=== PATIENT | male | born 1945 | race Caucasian/White ===

== ENCOUNTER 2018-08-31 15:39 | Emergency (ER) | payer MEDICARE, BC, SELFPAY ==
[2018-08-31] VITALS (10 sets, daily range): BP systolic 92–119; BP diastolic 55–79; PULSE 74–97; RESP 12–25; TEMP 36.2–37.1; O2SAT 90–94; BMI 27.2
--- NOTE | 2018-08-31 16:13 | DI.RAD.S_ITS ---
PROCEDURE: XR CHEST 1V INDICATIONS: chest pain TECHNIQUE: One view of the chest was acquired. COMPARISON: [facility], , CHEST 1 VIEW, 01/22/2017, 9:59. FINDINGS: Surgical changes and devices: Pacemaker. Lungs and pleura: No pleural effusions or pneumothorax. Mild increased pulmonary vascularity. Mediastinum: Mediastinal contours appear normal. Heart size is mildly prominent. Bones and chest wall: No suspicious bony lesions. Overlying soft tissues appear unremarkable. IMPRESSION: Mild increased vascularity suggestive of edema. Dictated by: Larisa Chiang M.D. on 08/31/2018 at 16:33 Approved by: Larisa Chiang M.D. on 08/31/2018 at 16:33
[2018-08-31 16:36] LABS: Add Manual Diff / Slide Review NO; Basophils Absolute Auto 100 /uL (0-100); Basophils Percent Auto 0.4 % (0-2); Eosinophils Absolute Auto 0 /uL (0-450); Eosinophils Percent Auto 0.2 % (2-4); Hematocrit 45.8 % (41-53); Lymphocytes Absolute Auto 1200 /uL (1100-4500); Lymphocytes Percent Auto 9.2 % (25-40); Mean Corpuscular HGB Conc 32.9 % (30-36); Mean Corpuscular Hemoglobin 31.5 PG (26-34); Mean Corpuscular Volume 95.8 fL (80-100); Monocytes Absolute Auto 1200 /uL (0-900); Monocytes Percent Auto 8.9 % (3-14); Neutrophils Absolute Auto 10900 /uL (1500-7000); Neutrophils Percent Auto 81.3 % (50-75); Platelet Count 132 X10^3/uL (150-400); Prothrombin Time 11.7 SECONDS (10.1-12.7); Red Blood Cell Count 4.78 X10^6/uL (4.5-5.9); Red Cell Distribution Width 14.2 % (11.6-14.8); White Blood Cell Count 13.4 X10^3/uL (4.5-11.0)
[2018-08-31 16:39] LABS: PTT Partial Thromboplastin Tim 27 SECONDS (26.4-36.2)
[2018-08-31 16:43] LABS: Alanine Aminotransferase 42 IU/L (21-72); Albumin 4.3 g/dL (3.5-5.0); Albumin Globulin Ratio 1.5 (1.0-2.8); Alkaline Phosphatase 83 U/L (38-126); Aspartate Aminotransferase 28 IU/L (17-59); BUN Creatinine Ratio 23.1 (6-22); Bilirubin Total 0.9 mg/dL (0.2-1.3); Blood Urea Nitrogen 30 mg/dL (9-20); Calcium 10.1 mg/dL (8.4-10.2); Carbon Dioxide 38 mmol/L (22-32); Chloride 96 mmol/L (98-107); Creatine Kinase 29 U/L (55-170); Estimated Glomerular Filt Rate 54.3 mL/min (>60); Globulin 2.9 g/dL (1.7-4.1); Glucose 152 mg/dL (80-110); HEMOLYSIS 19 (0-50); Lipase 161 U/L (23-300); Potassium 3.5 mmol/L (3.4-5.1); Sodium 142 mmol/L (137-145); Total Protein 7.2 g/dL (6.3-8.2)
[2018-08-31 16:54] LABS: Troponin I 0.063 ng/mL (0.01-0.034)
[2018-08-31 17:08] LABS: B Type Natriuretic Peptide 1950 (<100)
--- NOTE | 2018-08-31 17:44 | ED_ITS ---
HPI - SOB/Dyspnea General Chief Complaint: Extremity Problem,Nontraumatic Stated Complaint: POSSIBLE FLUID IN LEGS Time Seen by Provider: 08/31/18 17:24 Source: patient and family Mode of arrival: ambulatory Limitations: no limitations History of Present Illness 73-year-old male, daily smoker with ischemic cardiomyopathy, CHF presents from the [facility] in decompensated CHF which has been worsening over the past few weeks. The patient is largely compliant with his medication regimen and denies any dietary indiscretions. He has had no chest pain or other typical ischemic equivalents but does complain of weight gain of 6-10 lb, some increased swelling in his lower extremities, exertional dyspnea and orthopnea. He does use oxygen by nasal cannula at night normally 2L, but he's been using this during the day as of late MD Complaint: shortness of breath Onset (ago): day(s) Severity: moderate Consistency/Duration: constant and progressively worsening Relieving factors: oxygen, rest and upright position Exacerbating factors: lying flat and exertion Known history of: congestive heart failure Associated symptoms: denies other symptoms Related Data Home oxygen amount: as needed at night Home Medications Medication Instructions Recorded Confirmed arformoterol [Brovana] 15 mcg INH BID #0 01/19/17 08/31/18 ascorbic acid (vitamin C) 1,000 mg PO DAILY #0 01/19/17 08/31/18 aspirin 81 mg PO DAILY #0 01/19/17 08/31/18 cetirizine 10 mg PO DAILY #0 01/19/17 08/31/18 cholecalciferol (vitamin D3) 1,000 unit PO DAILY #0 01/19/17 08/31/18 [Vitamin D3] dorzolamide 1 drp OPHTH DAILY #0 01/19/17 08/31/18 ivabradine [Corlanor] 5 mg PO QAM #0 01/19/17 08/31/18 levalbuterol tartrate [Xopenex HFA] 1 - 2 puff INH PRN PRN #0 01/19/17 08/31/18 metoprolol succinate [Toprol XL] 37.5 mg PO BID #0 01/19/17 08/31/18 spironolactone [Aldactone] 12.25 mg PO DAILY #0 01/19/17 08/31/18 tiotropium bromide [Spiriva with 18 mcg RT DAILY #0 01/19/17 08/31/18 HandiHaler] torsemide [Demadex] 40 mg PO DAILY #0 01/19/17 08/31/18 clotrimazole 10 mg PO DIRECTED 08/31/18 08/31/18 cyanocobalamin (vitamin B-12) 2,500 mcg SUBLINGUAL DAILY 08/31/18 08/31/18 [Vitamin B-12] ivabradine [Corlanor] 2.5 mg PO QPM 08/31/18 08/31/18 prednisone 20 mg PO PRN PRN 08/31/18 08/31/18 Allergies Allergy/AdvReac Type Severity Reaction Status Date / Time lorazepam [LORAZEPAM] Allergy Unknown Verified 08/31/18 18:02 adhesive [ADHESIVE] AdvReac Severe Fragile Verified 08/31/18 18:02 skin, skin tear & bruising. Review of Systems Constitutional Denies chills, Denies fever(s), Denies lethargy and Denies weakness Eyes Denies change in vision, Denies eye discharge, Denies irritation and Denies loss of vision ENT Ears, Nose, Mouth, and Throat: Denies change in voice, Denies neck pain and Denies sore throat Cardiovascular Denies chest pain, Reports pedal edema, Reports edema, Denies irregular heart rhythm, Reports leg edema, Denies lightheadedness, Denies palpitations, Reports dyspnea, Reports dyspnea on exertion and Reports orthopnea Respiratory Denies cough, Reports dyspnea, Reports dyspnea on exertion and Denies wheezing Gastrointestinal Gastrointestinal: Denies abdominal pain, Denies change in bowel habits, Denies diarrhea, Denies nausea and Denies vomiting Genitourinary Denies hematuria, Denies flank pain, Denies urinary incontinence and Denies urinary urgency Musculoskeletal Denies neck pain Integumentary/Breasts Denies pruritus, Denies erythema, Denies rash and Denies wounds Neurologic Denies confusion, Denies loss of vision and Denies weakness Psychiatric Denies anxiety, Denies confusion, Denies depression, Denies homicidal ideation and Denies suicidal ideation Endocrine Denies palpitations Hematologic/Lymphatic Denies easy bruising Allergic/Immunologic Denies wheezing PFSH Medical History CAD (coronary artery disease) (Acute) CHF (congestive heart failure) (Acute) Surgical History AICD (automatic cardioverter/defibrillator) present (Acute) Social History Smoking Status: Current every day smoker Exam Narrative Exam Narrative: 73M in moderate stress, obvious increased work of breathing with exertion, initial SpO2 mid 80s on RA Initial Vital Signs Initial Vital Signs: Vital Signs Temperature 97.2 F L 08/31/18 15:57 Pulse Rate 88 08/31/18 15:57 Respiratory Rate 18 08/31/18 15:57 Blood Pressure 97/65 08/31/18 15:57 Pulse Oximetry 90 L 08/31/18 15:57 Const General: cooperative, well developed and acute distress Nutritional Appearance: well nourished Orientation: alert, awake, oriented x3 and not confused HENMT Head: normal to inspection Ears: hearing grossly normal bilaterally Nose: external nose normal Face and sinus: normal facial exam Eyes General: appearance normal, both eyes and all related structures Eyelids: eyelids normal Conjunctivae: conjunctivae normal Sclera: sclerae normal Pupils: PERRL EOM: EOM intact bilaterally Neck Neck: normal visual inspection Chest Chest: normal inspection of the chest Resp Effort & Inspection: normal respiratory effort, able to speak in complete sentences, no respiratory distress and no use of accessory muscles Auscultation: clear to auscultation bilaterally, crackles, no rales, rhonchi and no wheezes Cardio Rate: regular rate Rhythm: regular rhythm Heart Sounds: no click, no gallops, no murmurs and no rubs Pulses: normal peripheral pulses Back/Spine/Pelvis Back: No CVA tenderness Cervical Spine: cervical ROM normal and No pain with cervical ROM Thoracic/Lumbar Spine: thoracic and lumbar spine normal to inspection Skin General: no rashes or lesions noted, No jaundice and No petechiae Neuro General: alert, oriented x3, gait normal and no focal motor deficits Speech: speech normal Extrem General: full ROM, no clubbing, cyanosis or edema, no pedal edema and no calf tenderness Right lower extremity: edema Left lower extremity: edema Course Orders Ordered: ED Orders 08/31/18 16:13 XR chest 1V Stat EKG-12 Lead Stat 08/31/18 16:20 BNP [B Type Natriuretic Peptide] Stat Complete Blood Count AUTO DIFF Stat Comprehensive Metabolic Panel Stat Lipase Stat Partial Thromboplastin Time Stat Prothrombin Time INR Stat Troponin & CK Cardiac Panel Stat Discontinued Medications Furosemide (Lasix) 80 mg IV NOW ONE Stop: 08/31/18 17:49 Last Admin: 08/31/18 18:03 Dose: 80 mg Consultations Consultation #1: [employer] Supervisor (Dr. Mujica) was expecting my call. He recommends Lasix 80mg IVP and transfer to [facility], requests patient go to hospitalist and he will consult. Consultation #2: call to hospitalist at [facility] (Dr. Carey), she is happy to accept Vital Signs - 8 hr 08/31/18 15:57 08/31/18 17:42 Temperature 97.2 F L Pulse Rate 88 97 H Respiratory Rate 18 19 Blood Pressure 97/65 Blood Pressure [Left Arm] 92/68 Pulse Oximetry 90 L 91 MDM - SOB/Dyspnea Differential Diagnosis Likely acute exacerbation of chronic obstructive airways disease, congestive heart failure, community acquired pneumonia, asthma with exacerbation and pulmonary embolism Medical Records Attestation: I reviewed the patient's medical records. Lab Data Attestation: I reviewed the patient's lab results. Result diagrams: 08/31/18 16:20 08/31/18 16:20 Lab Results 08/31/18 08/31/18 08/31/18 Range/Units 16:20 16:20 16:20 WBC 13.4 H (4.5-11.0) X10^3/uL RBC 4.78 (4.5-5.9) X10^6/uL Hgb 15.0 (13.5-17.5) g/dL Hct 45.8 (41-53) % MCV 95.8 (80-100) fL MCH 31.5 (26-34) PG MCHC 32.9 (30-36) % RDW 14.2 (11.6-14.8) % Plt Count 132 L (150-400) X10^3/uL Neut % (Auto) 81.3 H (50-75) % Lymph % (Auto) 9.2 L (25-40) % Tyrrell % (Auto) 8.9 (3-14) % Eos % (Auto) 0.2 L (2-4) % Baso % (Auto) 0.4 (0-2) % Neut # (Auto) 23274 H (7916-7047) /uL Lymph # (Auto) 1200 (8729-3636) /uL Tyrrell # (Auto) 1200 H (0-900) /uL Eos # (Auto) 0 (0-450) /uL Baso # (Auto) 100 (0-100) /uL PT 11.7 (10.1-12.7) SECONDS INR 1.0 (0.9-1.3) APTT 27 (26.4-36.2) SECONDS Sodium 142 (137-145) mmol/L Potassium 3.5 (3.4-5.1) mmol/L Chloride 96 L (98-107) mmol/L Carbon Dioxide 38 H (22-32) mmol/L BUN 30 H (9-20) mg/dL Creatinine 1.30 H (0.66-1.25) mg/dL Estimated GFR 54.3 L (>60) mL/min BUN/Creatinine Ratio 23.1 H (6-22) Glucose 152 H (80-110) mg/dL Calcium 10.1 (8.4-10.2) mg/dL Total Bilirubin 0.9 (0.2-1.3) mg/dL AST 28 (17-59) IU/L ALT 42 (21-72) IU/L Alkaline Phosphatase 83 (38-126) U/L Total Creatine Kinase 29 L (55-170) U/L CK-MB (CK-2) TNP CK-MB (CK-2) Rel Index TNP Troponin I 0.063 H (0.01-0.034) ng/mL B-Natriuretic Peptide (<100) Total Protein 7.2 (6.3-8.2) g/dL Albumin 4.3 (3.5-5.0) g/dL Globulin 2.9 (1.7-4.1) g/dL Albumin/Globulin Ratio 1.5 (1.0-2.8) Lipase 161 (23-300) U/L 08/31/18 Range/Units 16:20 WBC (4.5-11.0) X10^3/uL RBC (4.5-5.9) X10^6/uL Hgb (13.5-17.5) g/dL Hct (41-53) % MCV (80-100) fL MCH (26-34) PG MCHC (30-36) % RDW (11.6-14.8) % Plt Count (150-400) X10^3/uL Neut % (Auto) (50-75) % Lymph % (Auto) (25-40) % Tyrrell % (Auto) (3-14) % Eos % (Auto) (2-4) % Baso % (Auto) (0-2) % Neut # (Auto) (7721-7516) /uL Lymph # (Auto) (3228-8867) /uL Tyrrell # (Auto) (0-900) /uL Eos # (Auto) (0-450) /uL Baso # (Auto) (0-100) /uL PT (10.1-12.7) SECONDS INR (0.9-1.3) APTT (26.4-36.2) SECONDS Sodium (137-145) mmol/L Potassium (3.4-5.1) mmol/L Chloride (98-107) mmol/L Carbon Dioxide (22-32) mmol/L BUN (9-20) mg/dL Creatinine (0.66-1.25) mg/dL Estimated GFR (>60) mL/min BUN/Creatinine Ratio (6-22) Glucose (80-110) mg/dL Calcium (8.4-10.2) mg/dL Total Bilirubin (0.2-1.3) mg/dL AST (17-59) IU/L ALT (21-72) IU/L Alkaline Phosphatase (38-126) U/L Total Creatine Kinase (55-170) U/L CK-MB (CK-2) CK-MB (CK-2) Rel Index Troponin I (0.01-0.034) ng/mL B-Natriuretic Peptide 1950 H (<100) Total Protein (6.3-8.2) g/dL Albumin (3.5-5.0) g/dL Globulin (1.7-4.1) g/dL Albumin/Globulin Ratio (1.0-2.8) Lipase (23-300) U/L Imaging Data Chest x-ray: Radiologist's impression: [address] [address] XRay Report Signed Patient: Cameron Anthony AM[facility]#: [id number] : 7Acct:[id number] Age/Sex: 73 / MDate of Service: 08/31/18 Loc: ED Accession Number: [id number] Procedure: XR chest 1V Ordering Provider: Flash Ellis D.O. PROCEDURE: XR CHEST 1V INDICATIONS: chest pain TECHNIQUE: One view of the chest was acquired. COMPARISON: [facility], , CHEST 1 VIEW, 01/22/2017, 9:59. FINDINGS: Surgical changes and devices: Pacemaker. Lungs and pleura: No pleural effusions or pneumothorax. Mild increased pulmonary vascularity. Mediastinum: Mediastinal contours appear normal. Heart size is mildly prominent. Bones and chest wall: No suspicious bony lesions. Overlying soft tissues appear unremarkable. IMPRESSION: Mild increased vascularity suggestive of edema. Dictated by: Larisa Chiang M.D. on 08/31/2018 at 16:33 Approved by: Larisa Chiang M.D. on 08/31/2018 at 16:33 ECG Data Attestation: I personally reviewed and interpreted this ECG as follows: Prior ECG tracings: not available for review Interpretation: Paced rhythm, 1 ectopic beat noted Discharge Plan Departure Patient Disposition: [facility] Clinical Impression: Acute decompensated heart failure Prescriptions: No Action cetirizine 10 MG tablet 10 mg PO DAILY Qty: 0 RF: 0 aspirin 81 MG tablet,delayed release (DR/EC) 81 mg PO DAILY Qty: 0 RF: 0 ascorbic acid (vitamin C) 500 MG tablet 1,000 mg PO DAILY Qty: 0 RF: 0 cholecalciferol (vitamin D3) [Vitamin D3] 1,000 UNIT tablet 1,000 unit PO DAILY Qty: 0 RF: 0 dorzolamide 2 % drops 1 drp OPHTH DAILY Qty: 0 RF: 0 metoprolol succinate [Toprol XL] 25 MG tablet extended release 24 hr 37.5 mg PO BID Qty: 0 RF: 0 spironolactone [Aldactone] 25 MG tablet 12.25 mg PO DAILY Qty: 0 RF: 0 tiotropium bromide [Spiriva with HandiHaler] 18 MCG capsule, w/inhalation device 18 mcg RT DAILY Qty: 0 RF: 0 torsemide [Demadex] 20 MG tablet 40 mg PO DAILY Qty: 0 RF: 0 levalbuterol tartrate [Xopenex HFA] 45 MCG/INH HFA aerosol inhaler 1 - 2 puff INH PRN PRN (Reason: Wheezing) Qty: 0 RF: 0 arformoterol [Brovana] 15 MCG/2 ML solution for nebulization 15 mcg INH BID Qty: 0 RF: 0 ivabradine [Corlanor] 5 MG tablet 5 mg PO QAM Qty: 0 RF: 0 clotrimazole 10 mg lm 10 mg PO DIRECTED RF: 0 cyanocobalamin (vitamin B-12) [Vitamin B-12] 2,500 mcg Tablet, Sublingual 2,500 mcg SUBLINGUAL DAILY RF: 0 prednisone 20 mg tablet 20 mg PO PRN PRN (Reason: unknown) RF: 0 ivabradine [Corlanor] 5 mg tablet 2.5 mg PO QPM RF: 0
[2018-08-31] MEDS: FUROSEMIDE 100 MG/10 ML VIAL 80 MG IV (18:03)
== END 2018-08-31 20:51 | disposition short-term general hospital (02) ==
PROVIDERS: Emergency Provider Emergency Medicine
DX: I50.9 Heart failure, unspecified (principal)
CPT/HCPCS: 36591; 71045; 80053; 82550; 83690; 83880; 84484; 85025; 85610; 85730; 93005; 96374; 99284; 99285; J1940